=== PATIENT | male | born 1995 | race Hispanic/Latino ===

== ENCOUNTER → 2019-11-30 | Emergency (ER) | payer OTHER ==
[~2019-11-30] MED LIST: Bacitracin 1 PK ONE; Lidocaine 1% (PF) 30 ML VIAL ONE
== END ==
LOC: NAV ERS 10:08
DX: S91.311A Laceration without foreign body, right foot, initial encounter (principal); W26.8XXA Contact with other sharp object(s), not elsewhere classified, initial encounter
CPT/HCPCS: 12001; J2001